=== PATIENT | male | born 1935 | race Caucasian/White ===

== ENCOUNTER → 2018-12-05 09:08 | Outpatient (CLI) | payer MEDICARE, OTHER ==
[2015-02-15 14:46] VITALS: BMI 26.9
[~2018-12-05 09:08] MED LIST: ALDACTONE25 MG PO; BAYER CHEWABLE81 MG PO; BENICAR HCT 20-1 TA1 PO; ZOCOR40 MG PO
--- NOTE | 2018-12-06 09:29 | EC ---
PATIENT:JARED MAY DATE OF SERVICE: 12/05/18 SEX: M MEDICAL RECORD: [id number] DATE OF : [birth year] LOCATION:D.[facility] AGE OF PATIENT: 83 ADMISSION DATE: 12/05/18 REFERRING PHYSICIAN: INTERPRETING PHYSICIAN: VIRGINIA IZAGUIRRE MD ECHOCARDIOGRAM REPORT ECHO CHARGES 4 ECHO COMPLETE Date: 12/05/18 CLINICAL DIAGNOSIS: CAD/AFIB ECHOCARDIOGRAPHIC MEASUREMENTS (adult normal given) AC root (d.<3.7cm) 3.4 cm LV Septum d (<1.2 cm> 1.4 cm Valve Excursion 1.4 cm LV Septum (systole) 1.6 cm Left Atria (s.<4.0cm> 4.7 cm LVPW d(<1.2cm) 1.5 cm RV (d.<2.3cm) 4.6 cm LVPW (sytole) 1.6 cm LV diastole(<5.6CM) 5.5 cm MV E-F(>70mm/sec) cm LV systole 4.3 cm LVOT Diameter 2.0 cm MV exc.(>10mm) 1.3 cm Est.ejection fraction (50-75%) % DOPPLER: LVIT cm/sec A 31.0 cm/sec E 104 cm/sec LA cm/sec RVSP 43 mmHg LVOT 74 cm/sec AOP1/2T m/s Asc. Ao 108 cm/sec RVOT 58 cm/sec RA cm/sec PA 80 cm/sec AV Gradient Peak 4.63 mmHg AV Mean 2.51 mmHg AV Area 2.3 cm MV Gradient Peak 5.18 mmHg MV Mean 1.76 mmHg MV Area cm COMMENTS: Glycerin Operator: Asmita ANDERSON Swahili Teacher: 3 Dr. Zarco TAPE# PACS Pericardial Effusion N DATE OF SERVICE: 12/05/2018 Adequate 2-D echo, color-flow and spectral Doppler, and M-mode. LVH is present. LV internal dimensions are normal. LV is mildly globally hypo with EF at lower limits of normal to mildly reduced. Estimated EF is 45% to 50%. Aortic valve sclerosis without stenosis by Doppler interrogation. Left atrium is dilated at 4.7 cm. Mitral valve is thickened. Mild MR. Right-sided chambers are grossly normal. Pafy-[id number] TR by color-flow imaging. ECHOCARDIOGRAM REPORT [id number] JARED MAY TRANSINT:[id number] Voice Confirmation ID: [id number] DOCUMENT ID: [id number] VIRGINIA IZAGUIRRE MD at 0929 CC: [id number] DICTATION DATE: 12/05/18 1503 BUSINESS COMPUTERS TEACHER: 12/05/18 1541 DEP CLI 12/05/18 [place] [id number] [place] [id number]
== END | disposition home or self-care (01) ==
LOC: D.HCCARDIO 09:08
PROVIDERS: ATTEND Internal Medicine Interventional Cardiology
DX: I48.91 Unspecified atrial fibrillation (principal)

== ENCOUNTER → 2020-10-17 11:56 | Outpatient (CLI) | payer MEDICARE, OTHER ==
[2015-02-15 14:46] VITALS: BMI 26.9
--- NOTE | ~2020-10-17 | EC ---
PATIENT:JARED MAY DATE OF SERVICE: 10/17/20 SEX: M MEDICAL RECORD: [id number] DATE OF : [birth year] [facility] AGE OF PATIENT: 84 ADMISSION DATE: 10/17/20 REFERRING PHYSICIAN: INTERPRETING PHYSICIAN: VIRGINIA IZAGUIRRE MD ECHOCARDIOGRAM REPORT ECHO CHARGES 4 ECHO COMPLETE Date: 10/17/20 CLINICAL DIAGNOSIS: CAD/CARDIOMYOPATHY/AFIB ASSESS EF/MITRAL/TRICUSPID REGURG AND LVH ECHOCARDIOGRAPHIC MEASUREMENTS (adult normal given) AC root (d.<3.7cm) 3.4 cm LV Septum d (<1.2 cm> 1.3 cm Valve Excursion 1.5 cm LV Septum (systole) 1.6 cm Left Atria (s.<4.0cm> 5.0 cm LVPW d(<1.2cm) 1.5 cm RV (d.<2.3cm) 4.5 cm LVPW (sytole) 1.9 cm LV diastole(<5.6CM) 6.6 cm MV E-F(>70mm/sec) cm LV systole 5.1 cm LVOT Diameter 2.2 cm MV exc.(>10mm) 1.6 cm Est.ejection fraction (50-75%) % DOPPLER: LVIT cm/sec A cm/sec E 118.0 cm/sec LA cm/sec RVSP 36 mmHg LVOT 83 cm/sec AOP1/2T m/s Asc. Ao 123 cm/sec RVOT 79 cm/sec RA cm/sec PA 114 cm/sec AV Gradient Peak 6.04 mmHg AV Mean 2.95 mmHg AV Area 2.6 cm MV Gradient Peak 6.59 mmHg MV Mean 2.76 mmHg MV Area cm COMMENTS: Mine Analyst: 2 DAVIDE ANDERSON Chemist Proteins: 3 Dr. Zarco TAPE# PACS Pericardial Effusion N DATE OF SERVICE: Adequate 2D, color flow imaging, spectral Doppler, and M-Mode. FINDINGS: LVH present. LV internal dimension is dilated. LV is difficult to fully assess secondary to underlying atrial fibrillation and variable RR intervals. Overall, LV function appears to be lower limits of normal to mildly reduced 45% to 50%. Aortic valve sclerosed without stenosis by Doppler interrogation. Left atrium is dilated at 5 cm. Mitral valve shows no prolapse. ECHOCARDIOGRAM REPORT [id number] JARED MAY Mild MR. Right side is grossly normal. Mild TR. TRANSINT:[id number] Voice Confirmation ID: [id number] DOCUMENT ID: [id number] VIRGINIA IZAGUIRRE MD CC: [id number] DICTATION DATE: 10/21/20903 REHAB CARE ASSISTANT: 10/21/20 1419 DEP CLI 10/17/20 [facility] [address] [place] [id number]
== END | disposition home or self-care (01) ==
LOC: D.HCCECHO 11:56
PROVIDERS: ATTEND Internal Medicine Interventional Cardiology
DX: I25.10 Atherosclerotic heart disease of native coronary artery without angina pectoris (principal)